=== PATIENT | female | born 1980 | race Caucasian/White ===

== ENCOUNTER 2020-12-30 14:12 | Emergency (ER) | payer OTHER ==
[~2020-12-30] VITALS: Ht 170.2 cm; Wt 86.2 kg
[2020-12-30 14:14] VITALS: BP 152/81
== END 2020-12-30 15:47 | disposition home or self-care (01) ==
LOC: ER 14:12
DX: S60.450A Superficial foreign body of right index finger, initial encounter (principal); X58.XXXA Exposure to other specified factors, initial encounter; Y93.89 Activity, other specified; Y92.89 Other specified places as the place of occurrence of the external cause; Y99.8 Other external cause status
CPT/HCPCS: 10060

== ENCOUNTER 2023-06-01 09:41 | Emergency (ER) | payer OTHER, MEDICAID ==
[~2023-06-01] VITALS: Ht 170.2 cm; Wt 79.5 kg
[2023-06-01 10:09] LABS: Basophils # (auto) 0.1 10 ^3/uL (0-0.2); Basophils % (auto) 0.7 % (0.0-2.0); Eosinophils # (auto) 0 10 ^3/uL (0-0.8); Eosinophils % (auto) 0.1 % (0.0-7.0); Hematocrit 39.8 % (36.0-46.0); Hemoglobin 13.4 g/dL (12.2-16.2); Lymphocytes % (auto) 28.2 % (10.0-50.0); Mean Corpuscular Hemoglobin 29.3 pg (28.0-32.0); Mean Corpuscular Hgb Conc. 33.7 g/dL (32.0-36.0); Mean Corpuscular Volume 86.8 fL (80.0-100.0); Monocytes # (auto) 0.8 10 ^3/uL (0-1.3); Monocytes % (auto) 7.7 % (0.0-12.0); Neutrophils # (auto) 6.7 10 ^3/uL (1.6-8.6); Neutrophils % (auto) 63.3 % (37.0-80.0); Nucleated Red Blood Cells % 0.1 %; Red Blood Cells 4.59 10^6/uL (4.0-5.20); Red Cell Distribution Width 13.7 % (11.8-14.3); White Blood Cell 10.5 10^3/uL (4.4-10.8)
[2023-06-01 10:24] LABS: INR 1.15 (0.9-1.15); Partial Thromboplastin Time 29.6 SEC (24.5-34.5)
[2023-06-01 10:55] VITALS: PULSE 66; RESP 21; O2SAT 96
[2023-06-01] MEDS ORDERED: MORPHINE SULFATE 4 MG/ML SYR/VIAL IV ONE (11:00)
[2023-06-01] MEDS ORDERED: ONDANSETRON HCL 4 MG/2 ML VIAL IV ONE (11:00)
[2023-06-01 12:30] VITALS: TEMP 98.3
[2023-06-01 12:39] LABS: Alanine Aminotransferase 10 U/L (7-40); Albumin 4.2 g/dL (3.2-4.8); Alkaline Phosphatase 70 U/L (46-116); Aspartate Aminotransferase 9 U/L (13-40); Blood Urea Nitrogen 6 mg/dL (9-23); Calcium 9.3 mg/dL (8.5-10.1); Carbon Dioxide 23 mmol/L (20-30); Glucose 107 mg/dL (74-106)
[2023-06-01 12:40] LABS: Bilirubin, Total 0.8 mg/dL (0.2-1.0); Total Protein 6.9 g/dL (5.7-8.2)
[2023-06-01] MEDS ORDERED: METOCLOPRAMIDE HCL 5MG/ml INJ 2ml VIAL IV ONE (12:45)
[2023-06-01] MEDS ORDERED: HYDROmorphone HCL 2 MG/ML VL/or syr IV ONE (12:45)
[2023-06-01 12:52] LABS: Anion Gap 9 (5-15); Chloride 110 mmol/L (98-107); Potassium 3.5 mmol/L (3.5-5.1); Sodium 142 mmol/L (136-145)
[2023-06-01] MEDS ORDERED: IOHEXOL 300 MG/ML 100ML BOTTLE IJ ONE (12:54)
[2023-06-01 13:35] LABS: Urine Bacteria NONE SEEN /hpf (None Seen); Urine Blood Negative /uL (Negative); Urine Clarity Clear (Clear); Urine Color Colorless (Yellow); Urine Protein, UAD Negative (Negative); Urine Specific Gravity 1.007 (1.001-1.035); Urine Urobilinogen Normal (Negative); Urine WBC 2 /hpf (0 - 5); Urine pH 7.5 (5.0-8.0)
[2023-06-01 15:36] VITALS: BP 128/62; PULSE 65; RESP 20; O2SAT 96
== END 2023-06-01 15:48 | disposition home or self-care (01) ==
LOC: ER 09:41 → EDBD 09:41 → ER 15:48
DX: K62.89 Other specified diseases of anus and rectum (principal); R10.9 Unspecified abdominal pain; K51.20 Ulcerative (chronic) proctitis without complications; Z88.0 Allergy status to penicillin; Z88.6 Allergy status to analgesic agent; Z88.8 Allergy status to other drugs, medicaments and biological substances
CPT/HCPCS: 36415; 74176; 80053; 81001; 85025; 85610; 85730; 96374; 96375; 99285; J1170; J2270; J2405; J2765